=== PATIENT | female | born 1945 | race Caucasian/White ===

== ENCOUNTER → 2016-12-01 | Outpatient (CLI) | payer OTHER ==
[2016-12-01 12:19] LABS: HEMATOCRIT 38.3 % (37-47); MEAN CELL VOLUME 85.1 fL (80-100); MEAN CORPUSCULAR HEMOGLOBIN 28.4 pg (25-34); MEAN CORPUSCULAR HGB CONC 33.4 g/dl (32-36); PLATELET COUNT 206 K/uL (130-400); WHITE BLOOD COUNT 6.97 K/uL (4.8-10.8)
[2016-12-01 13:20] LABS: ESTIMATED AVERAGE GLUCOSE 177 mg/dl; HA1C FLAG Normal (Normal)
[2016-12-01 13:37] LABS: BLOOD UREA NITROGEN 17 mg/dl (7-18); BUN/CREATININE RATIO 15.3 (10-20); CALCIUM 9.1 mg/dl (8.5-10.1); CARBON DIOXIDE 29 mmol/L (21-32); CHLORIDE 102 mmol/L (98-107); GLUCOSE 168 mg/dl (70-99); POTASSIUM 4.3 mmol/L (3.5-5.1); SODIUM 139 mmol/L (136-145)
[2016-12-01 13:41] LABS: FERRITIN 17.5 ng/ml (8.0-388.0)
--- NOTE | 2016-12-05 09:18 | CODING QUERY MEDICAL NECESSITY ---
CQSUPPORTING DIAGNOSIS NEEDED A supporting diagnosis is required for the test/procedure performed on this patient in order for us to be reimbursed by the patient's insurance. Please provide a supporting diagnosis for the following test/procedure listed below next to the test name along with your signature. *If there is no additional diagnosis for this patient that would support the following test/procedure please document that below next to the test/procedure. Test(s)/Procedure(s) that require a supporting diagnosis: DOS 12/01/16 VITAMIN D TEST ORDERED BY YENNY CUI Provider Signature: Date: Thank you Lovely [facility] Information Management Once completed, please kindly fax back to [phone] For questions please call [phone]
== END | disposition home or self-care (01) ==
LOC: C.LABPBG 08:46
PROVIDERS: ATTEND Physician Assistant
DX: I10 Essential (primary) hypertension (principal); E11.9 Type 2 diabetes mellitus without complications; R53.83 Other fatigue; Z13.21 Encounter for screening for nutritional disorder

== ENCOUNTER → 2016-12-22 | Outpatient (CLI) | payer OTHER | END | disposition home or self-care (01) | LOC: C.MAMM 13:23 | PROVIDERS: ATTEND Physician Assistant | DX: Z00.00 Encounter for general adult medical examination without abnormal findings (principal); M19.90 Unspecified osteoarthritis, unspecified site; M85.851 Other specified disorders of bone density and structure, right thigh; M85.852 Other specified disorders of bone density and structure, left thigh ==

== ENCOUNTER → 2016-12-23 | Outpatient (CLI) | payer OTHER ==
[2016-12-23 17:34] LABS: BLOOD UREA NITROGEN 18 mg/dl (7-18); CREATININE 0.97 mg/dl (0.60-1.20); GLUCOSE 105 mg/dl (70-99)
[2016-12-23 17:35] LABS: BUN/CREATININE RATIO 18.9 (10-20); CALCIUM 9.5 mg/dl (8.5-10.1); CARBON DIOXIDE 31 mmol/L (21-32); CHLORIDE 104 mmol/L (98-107); PHOSPHORUS 3.3 mg/dl (2.5-4.9); POTASSIUM 4.1 mmol/L (3.5-5.1); SODIUM 139 mmol/L (136-145)
[2016-12-23 17:42] LABS: URINE APPEARANCE CLEAR (CLEAR); URINE BILIRUBIN NEG (NEG); URINE COLOR YELLOW; URINE NITRITE NEG (NEG); URINE PROTIEN/CREAT RATIO 0.1 (0-0.2); URINE SPECIFIC GRAVITY 1.018 (1.000-1.030); URINE TOTAL PROTEIN 6.6 mg/dl (0-11.9); UROBILINOGEN NEG (NEG)
[2016-12-23 17:52] LABS: MANUAL MICROSCOPIC REQUIRED? NO; REVIEW REQ? NO
== END | disposition home or self-care (01) ==
LOC: C.LABPBG 15:29
PROVIDERS: ATTEND Internal Medicine Nephrology
DX: N18.3 Chronic kidney disease, stage 3 (moderate) (principal)

== ENCOUNTER → 2017-03-06 | Outpatient (CLI) | payer OTHER ==
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
== END | disposition home or self-care (01) ==
LOC: C.RAD 13:05
PROVIDERS: ATTEND Physician Assistant
DX: M25.532 Pain in left wrist (principal); M25.432 Effusion, left wrist; E88.89 Other specified metabolic disorders; W19.XXXA Unspecified fall, initial encounter

== ENCOUNTER → 2017-03-13 | Outpatient (CLI) | payer OTHER ==
[2017-03-13 13:31] LABS: RATIO 8.2 mcg/mg (0-30.0)
[2017-03-13 13:37] LABS: BLOOD UREA NITROGEN 16 mg/dl (7-18); GLUCOSE 134 mg/dl (70-99)
[2017-03-13 13:38] LABS: BUN/CREATININE RATIO 16.3 (10-20); CALCIUM 9.3 mg/dl (8.5-10.1); CARBON DIOXIDE 31 mmol/L (21-32); CHLORIDE 104 mmol/L (98-107); CHOLESTEROL 104 mg/dl (0-200); POTASSIUM 4.1 mmol/L (3.5-5.1); SODIUM 140 mmol/L (136-145); TRIGLYCERIDES 96 mg/dl (0-150); VERY LOW DENSITY LIPOPROT CALC 19 mg/dl
[2017-03-13 13:48] LABS: CHOLESTEROL/HDL RATIO 2.1; HDL CHOLESTEROL 50 mg/dl; LDL CHOLESTEROL CALCULATED 35 mg/dl; THYROID STIMULATING HORMONE 0.801 uIu/ml (0.300-4.500)
[2017-03-14 06:49] LABS: ESTIMATED AVERAGE GLUCOSE 154 mg/dl; HA1C FLAG Normal (Normal)
== END | disposition home or self-care (01) ==
LOC: C.LABPBG 07:31
PROVIDERS: ATTEND Nurse Practitioner Family
DX: E11.9 Type 2 diabetes mellitus without complications (principal)

== ENCOUNTER → 2017-06-22 | Outpatient (CLI) | payer OTHER ==
[2017-06-24 12:19] LABS: EPSTEIN BARR VIR CAPSID IGG >750.00 U/ML
== END | disposition home or self-care (01) ==
LOC: C.LABPBG 09:50
PROVIDERS: ATTEND Physician Assistant
DX: R53.83 Other fatigue (principal)

== ENCOUNTER → 2017-07-20 | Outpatient (CLI) | payer OTHER ==
[2017-07-20 17:44] LABS: BLOOD UREA NITROGEN 18 mg/dl (7-18); BUN/CREATININE RATIO 18.5 (10-20); CALCIUM 9.5 mg/dl (8.5-10.1); CARBON DIOXIDE 28 mmol/L (21-32); CHLORIDE 101 mmol/L (98-107); CREATININE 0.96 mg/dl (0.60-1.20); GLUCOSE 99 mg/dl (70-99); POTASSIUM 4.4 mmol/L (3.5-5.1); SODIUM 137 mmol/L (136-145)
== END | disposition home or self-care (01) ==
LOC: C.LABPBG 11:29
PROVIDERS: ATTEND Physician Assistant
DX: Z01.818 Encounter for other preprocedural examination (principal)

== ENCOUNTER → 2017-09-28 | Outpatient (CLI) | payer OTHER ==
[2017-09-28 13:22] LABS: HEMOGLOBIN A1C 7.3 % (4.5-5.6)
[2017-09-28 17:51] LABS: BLOOD UREA NITROGEN 17 mg/dl (7-18); CALCIUM 9.6 mg/dl (8.5-10.1); CARBON DIOXIDE 32 mmol/L (21-32); GLUCOSE 79 mg/dl (70-99); POTASSIUM 4.4 mmol/L (3.5-5.1); SODIUM 136 mmol/L (136-145)
== END | disposition home or self-care (01) ==
LOC: C.LABPBG 11:24
PROVIDERS: ATTEND Physician Assistant
DX: R53.83 Other fatigue (principal); Z13.21 Encounter for screening for nutritional disorder; E11.9 Type 2 diabetes mellitus without complications

== ENCOUNTER → 2017-11-09 | Outpatient (CLI) | payer OTHER ==
--- NOTE | 2017-11-11 14:13 | MAMMOGRAPHY REPORT ---
BILATERAL DIGITAL SCREENING MAMMOGRAM TOMOSYNTHESIS WITH CAD: 11/09/2017 CLINICAL HISTORY: Routine screening. Patient has no complaints. TECHNIQUE: Breast tomosynthesis in addition to standard 2D mammography was performed. Current study was also evaluated with a Computer Aided Detection (CAD) system. COMPARISON: Comparison is made to exams dated: 08/11/2016 mammogram, 08/01/2015 mammogram, 07/31/2014 mammogram, 07/29/2013 mammogram, and 10/28/2007 mammogram - [facility] [place]. BREAST COMPOSITION: There are scattered areas of fibroglandular density in both breasts. FINDINGS: No suspicious masses, calcifications, or areas of architectural distortion are noted in ei ther breast. There has been no significant interval change compared to prior exams. Scattered bilate ral punctate benign-appearing calcifications are again noted. IMPRESSION: ACR BI-RADS CATEGORY 2: BENIGN There is no mammographic evidence of malignancy. A 1 year screening mammogram is recommended. The pa tient will receive written notification of the results. Approximately 10% of breast cancers are not detected with mammography. A negative mammographic report should not delay biopsy if a clinically suggestive mass is present. Missy Cadena M.D. ah/:11/10/2017 15:03:11 Technology Administrator: Eva CAT(David)(M), [facility] letter sent: Normal 1/2 BI-RADS Code: ACR BI-RADS Category 2: Benign
== END | disposition home or self-care (01) ==
LOC: C.MAMM 11:34
PROVIDERS: ATTEND Physician Assistant
DX: Z12.31 Encounter for screening mammogram for malignant neoplasm of breast (principal)

== ENCOUNTER → 2018-04-05 | Outpatient (CLI) | payer OTHER ==
[~2018-04-05] MED LIST: ASPECOTC PO; CALC-211 PO; ESCI10TA17 PO; GLC/500 PO; GLIP10TA9 PO; LISI-863 PO; LOVA40TA4 PO; OYST500T47 PO; REPA2TAB12 PO
[2018-04-05 18:13] LABS: BLOOD UREA NITROGEN 15 mg/dl (7-18); CALCIUM 9.4 mg/dl (8.5-10.1); CARBON DIOXIDE 28 mmol/L (21-32); CREATININE 0.97 mg/dl (0.60-1.20); GLUCOSE 135 mg/dl (70-99); SODIUM 137 mmol/L (136-145)
[2018-04-05 18:23] LABS: BASO % 0.5 %; BASO ABS # 0.05 K/uL (0-0.2); EOS % 3.7 %; EOS ABS # 0.35 K/uL (0-0.5); HEMATOCRIT 34.1 % (37-47); HEMOGLOBIN 10.9 g/dL (12.0-16.0); IG# 0.02 K/uL (0.00-0.02); LYMPH % 28.2 %; LYMPH ABS # 2.67 K/uL (1.2-3.4); MEAN CELL VOLUME 90.9 fL (80-100); MEAN CORPUSCULAR HEMOGLOBIN 29.1 pg (25-34); MEAN PLATELET VOLUME 10.6 fL (7.4-10.4); MONO % 7.5 %; MONO ABS # 0.71 K/uL (0.11-0.59); NEUT % 59.9 %; NEUT ABS # 5.68 K/uL (1.4-6.5); PLATELET COUNT 223 K/uL (130-400); RED CELL DISTRIBUTION WIDTH SD 49.7 fL (36.4-46.3); WHITE BLOOD COUNT 9.48 K/uL (4.8-10.8)
== END | disposition home or self-care (01) ==
LOC: C.CPL 16:29
PROVIDERS: ATTEND Orthopaedic Surgery
DX: Z01.810 Encounter for preprocedural cardiovascular examination (principal); Z01.812 Encounter for preprocedural laboratory examination; M75.120 Complete rotator cuff tear or rupture of unspecified shoulder, not specified as traumatic

== ENCOUNTER → 2018-04-15 | Day surgery (SDC) | payer OTHER ==
[2018-04-07 14:05] VITALS: Ht 163.8 cm; Wt 75.5 kg
[~2018-04-15] VITALS: Ht 163.8 cm; Wt 75.5 kg
[~2018-04-15] MED LIST changes: +ATROPINE SO4 1 MG/ML 1ML VIAL ONE; +ATROPINE SULFATE 0.1 MG/ML 5ML SYR IV PRN; +BUPIVACAINE 0.25% 30 ML VIAL ONE; +CEFAZOLIN 1000MG IV PUSH 7.5 ML IV SCH; +ESMOLOL HCL 10 MG/ML 10 ML VIAL ONE; +EpHEDrine SULFATE 50MG/5ML SYR ONE; +EpHEDrine SULFATE INJ 50 MG/ML AMP IV PRN; +EpINEphrine INJ 1MG/ML AMP 1 MG/ML AMP ONE; +FENTANYL CITRATE INJ 50 MCG/1 ML 2 ML VIAL IV PRN; +FENTANYL CITRATE INJ 50 MCG/1 ML 2 ML VIAL ONE; +KETO10TA PO; +KETOROLAC TROMETHAMINE 15 MG/ML VIAL IV. PRN; +LACTATED RINGER'S 1000ML 1,000 ML IV SCH; +LIDOCAINE HCL 2% 2 ML VIAL (20MG/ML) ONE; +MIDAZOLAM HCL 1 MG/ML 2ML VIAL ONE; +ONDANSETRON INJ 2 MG/ML 2 ML VIAL IV PRN; +ONDANSETRON INJ 2 MG/ML 2 ML VIAL ONE; +OXYC-57 PO; +OXYCODONE/ACETAMINOPHEN 5-325 TAB PO PRN; -OYST500T47 PO; +PHENYLEPHRINE HCL INJ 10 MG/ML VIAL ONE; +PROPOFOL IV EMULSION 10 MG/ML 20 ML VIAL ONE; +ROPIVACAINE 0.5% 5 MG/ML 30 ML VIAL ONE; +SODIUM CHLORIDE 0.9% 1000ML 1,000 ML IV SCH; +SUCCINYLCHOLINE CHLORIDE 20 MG/ML 10 ML VIAL IV ONE
--- NOTE | 2018-04-15 10:41 | History & Physical Bridge - SC ---
H&P Re-Evaluation Bridge Note: I have examined the patient, reviewed the History & Physical and in the interval since the performance of the History & Physical I have noted the following changes of clinical significance: No changes noted
--- NOTE | 2018-04-15 13:55 | [facility] Post Operative Brief Note ---
Immediate Operative Summary Operative Date Apr 15, 2018. Pre-Operative Diagnosis Right Shoulder Full Thickness Rotator Cuff Tear Post-Operative Diagnosis Same Procedure(s) Performed Right Shoulder Arthroscopy With Massive Rotator Cuff Repair Surgeon Dr. Helm Receiving Clerk Surgeon(s) Keren Spring PA-C Estimated Blood Loss 5 ml Findings Consistent with Post-Op Diagnosis Specimens None Anesthesia Type [facility]
--- NOTE | 2018-04-15 14:07 | Discharge Instructions-SurgCtr ---
Discharge Instructions Date of Service Apr 15, 2018. Visit Reason for Visit: Right Shoulder Full Thickness Rotator Cuff Tear Discharge Discharge Diagnosis / Problem: SAME ABOVE Discharge Goals Goal(s): Decrease discomfort, Improve function Activity Recommendations Activity Limitations: as noted below Lifting Limitations: until after follow-up appointment Exercise/Sports Limitations: until after follow-up appointment Shower/Bathe: tomorrow Anesthesia . Post Anesthesia Instructions: If you have had General Anesthesia or IV Sedation: * Do not drive today. * Resume driving when surgeon permits. * Do not make important decisions or sign legal documents today. * Call surgeon for: 1. Temperature elevations greater than 101 degrees F. 2. Uncontrollable pain. 3. Excessive bleeding. 4. Persistent nausea and vomiting. 5. Medication intolerance (nausea, vomiting or rash). * For nausea and vomiting use only clear liquids such as: tea, soda, bouillon until nausea subsides, then gradually increase diet as tolerated. * If you have any concerns or questions, call your surgeon's office. If physician is unavailable and it is an emergency, call 911 or go to the nearest emergency room. . Instructions / Follow-Up Instructions / Follow-Up MEDICATIONS: * Resume previous medications unless instructed otherwise by your surgeon. * Always take pain medication on a full stomach or with food to avoid upset stomach. * Do not drink alcohol or drive while taking narcotics. * Ibuprofen or Tylenol may be taken if narcotic not needed. SPECIAL CARE INSTRUCTIONS: __ None _X_ Keep extremity elevated and iced x 48 hours; apply ice 20-30 minutes 8-10 times/day. May remove at night. __ Sling __24 hrs/day __ Remove at night _X_ Shoulder Immobilizer (MAY REMOVE AFTER 48 HOURS ONLY TO SHOWER) _X_ 24 hrs/day __ Remove at night _X_ Dressing __ Maintain until seen in office, may shower with plastic over site _X_ Remove dressings in 24-48 hours and then may shower _X_ Cover incisions with band-aids after showering __ Do not remove steri-strips Call physician if chills or temperature rises above 102 degrees or pain unrelieved by prescribed pain medications at . . Diet Recommendations Home Diet: no limitations Fluid Restriction: None Procedures Procedures Performed: Right Shoulder Arthroscopy With Massive Rotator Cuff Repair Pending Studies Studies pending at discharge: no Work Instructions Return To Work: after follow-up Lifting Limitations: NO LIFTING WITH RIGHT ARM Medical Emergencies . Who to Call and When: Medical Emergencies: If at any time you feel your situation is an emergency, please call 911 immediately. . Non-Emergent Contact Non-Emergency issues call your: Surgeon Call Non-Emergent contact if: your pain is not controlled, wound has increased drainage, wound has increased redness . . "Provider Documentation" section prepared by Oswald Spring. .
--- NOTE | 2018-04-15 15:12 | Anesthesiology Progress Note ---
Anesthesia Progress Note Date of Service Apr 15, 2018. Progress Notes Patient is a 72 yo female who presented to the outpatient surgical center for right shoulder arthroscopy with Dr. Helm. PMH is significant for DMII, CKD, HTN and arrhythmia (PACs and PVCs). Prior to going to the OR, the patient was given a right interscalene block under US without any complications. On arrival to the OR, the patient was preoxygenated and ASA monitors were applied. The patient was induced with propofol and a #4 LMA was placed easily. The patient was positioned in Beach Chair and the case started. At 1230, the patient was noted to be tachycardic and hypertensive and was given fentanyl. Pt then noted to have decreased tidal volumes. I was called to the room. Propofol and a small dose of succinylcholine were given for apparent laryngospasm. Attempts were made to reseat the LMA with some improvement in tidal volumes. Spoke with Dr. Helm who stated that he had at least another hour of work. At this time, I decided to convert from GA with LMA to intubation. The patient was preoxygenated with the LMA in place and given an intubating dose of succinylcholine. After succinylcholine, the patient became bradycardic with a HR down to 34, she was given atropine with an immediate response. I then intubated her using a #3 blade and a glidescope on my first attempt with the patient in the Beach Chair position. After intubation, the patient had appropriate tidal volumes and was given a dose of esmolol with good response. The remainder of the case was uneventful and the patient denied shoulder pain in PACU. No evidence of trauma to oral airway. Patient did complain of jaw pain, likely from intubation. Patient denied any recall of the intraoperative events. Ronit Jesus MD, PhD Anesthesiology
--- NOTE | 2018-04-15 15:50 | Anesthesia Progress Nt - [facility] ---
Anesthesia Post Op Note Date & Time Apr 15, 2018 at 15:49 Vital Signs Pain Intensity: 0 Vital Signs Past 12 Hours Date Time Temp Pulse Resp B/P (MAP) Pulse Ox O2 Delivery O2 Flow Rate FiO2 04/15/18 15:45 128/72 04/15/18 15:45 36.8 83 10 128/72 95 Room Air 04/15/18 15:43 84 10 04/15/18 15:43 84 10 96 04/15/18 15:40 129/72 04/15/18 15:38 84 13 04/15/18 15:38 83 13 94 04/15/18 15:35 132/68 04/15/18 15:33 87 11 04/15/18 15:33 87 11 96 04/15/18 15:30 134/71 04/15/18 15:28 83 11 04/15/18 15:28 83 11 94 04/15/18 15:27 84 12 04/15/18 15:27 36.6 95 Room Air 04/15/18 15:27 83 12 94 04/15/18 15:25 126/65 04/15/18 15:22 85 14 04/15/18 15:22 85 14 93 04/15/18 15:20 133/66 04/15/18 15:17 93 18 04/15/18 15:17 93 18 94 04/15/18 15:15 127/83 04/15/18 15:12 100 15 04/15/18 15:12 101 15 93 04/15/18 15:10 129/79 04/15/18 15:07 95 9 94 04/15/18 15:07 95 9 04/15/18 15:05 128/70 04/15/18 15:02 90 10 04/15/18 15:02 90 10 96 04/15/18 15:01 120/63 04/15/18 14:57 92 17 99 04/15/18 14:57 91 17 04/15/18 14:55 136/75 04/15/18 14:53 36.3 04/15/18 14:52 95 9 100 04/15/18 14:52 95 9 04/15/18 14:50 118/79 04/15/18 14:47 89 9 100 04/15/18 14:47 89 9 04/15/18 14:45 133/96 04/15/18 14:42 93 10 04/15/18 14:42 94 10 100 04/15/18 14:40 36.4 04/15/18 14:40 138/78 04/15/18 14:37 94 15 04/15/18 14:37 94 15 100 04/15/18 14:35 117/69 04/15/18 14:32 93 9 100 04/15/18 14:32 94 9 04/15/18 14:30 142/67 04/15/18 14:30 36.1 04/15/18 14:27 95 12 04/15/18 14:27 95 12 100 04/15/18 14:25 125/72 04/15/18 14:22 96 0 98 04/15/18 14:22 97 0 04/15/18 14:20 144/70 04/15/18 14:17 98 13 04/15/18 14:17 98 13 97 04/15/18 14:15 146/79 04/15/18 14:13 157/84 04/15/18 14:13 35.5 97 11 157/84 100 Mask 6 04/15/18 11:37 55 0 100 04/15/18 11:37 57 04/15/18 11:36 59 10 129/78 100 04/15/18 11:36 59 04/15/18 11:31 64 04/15/18 11:31 65 6 100 04/15/18 11:26 65 27 92 04/15/18 11:26 67 04/15/18 11:21 54 0 04/15/18 11:16 67 0 04/15/18 11:11 62 0 04/15/18 11:06 55 0 04/15/18 11:01 63 0 04/15/18 10:01 36.5 60 22 125/73 (90) 98 Room Air Notes Mental Status: alert / awake / arousable, participated in evaluation Pt Amnestic to Procedure: Yes Nausea / Vomiting: adequately controlled Pain: adequately controlled Airway Patency, RR, SpO2: stable & adequate BP & HR: stable & adequate Hydration State: stable & adequate Anesthetic Complications: no major complications apparent Anesthetic Complications: Block is functioning well. Please see additional Anesthesia progress note and anesthesia record for documentation of intraoperative events. Other than a sore jaw, no evidence of anesthetic complications.
[2018-04-15 15:59] VITALS: TEMP 36.8
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
[2018-04-15 16:24] VITALS: BP 129/77; PULSE 86; O2SAT 97
== END | disposition home or self-care (01) ==
LOC: X.SURG 09:48
PROVIDERS: ATTEND Orthopaedic Surgery
DX: S46.011A Strain of muscle(s) and tendon(s) of the rotator cuff of right shoulder, initial encounter (principal); V09.20XA Pedestrian injured in traffic accident involving unspecified motor vehicles, initial encounter; E11.9 Type 2 diabetes mellitus without complications; M06.9 Rheumatoid arthritis, unspecified; N18.3 Chronic kidney disease, stage 3 (moderate); I12.9 Hypertensive chronic kidney disease with stage 1 through stage 4 chronic kidney disease, or unspecified chronic kidney disease; E11.22 Type 2 diabetes mellitus with diabetic chronic kidney disease; F41.9 Anxiety disorder, unspecified; F32.9 Major depressive disorder, single episode, unspecified; Z83.79 Family history of other diseases of the digestive system; Z83.3 Family history of diabetes mellitus; Z84.1 Family history of disorders of kidney and ureter